=== PATIENT | female | born 1945 | race African-American/Black ===

== ENCOUNTER 2019-02-27 14:26 | Emergency (ER) | payer BC, MEDICARE, OTHER ==
[~2019-02-27] VITALS: Ht 167.6 cm; Wt 69.0 kg
[~2019-02-27 14:26] MED LIST: ASPI-1158; ASPI-986 PO; ATEN-42; ATEN-42 PO; HYDR12.54 PO; HYDROCHLOROTHIAZIDE; ROSU20TA2; ROSU40TA PO
[2019-02-27 15:32] LABS: BASOPHILS % 0.6 % (0.0-2.0); EOSINOPHILS % 1.8 % (0.0-5.0); HEMATOCRIT. 38.4 % (36.0-48.0); HEMOGLOBIN. 12.6 g/dL (12.0-16.0); LYMPHOCYTES % 39.9 % (20.0-50.0); MEAN CORPUSCULAR HEMOGLOBIN 26.9 pg (28.0-32.0); MEAN PLATELET VOLUME 9.6 fl (7.4-10.4); MONOCYTES % 7.9 % (2.0-8.0); NEUTROPHILS % 49.8 % (40.0-76.0); PLATELET 168 x1000/uL (130-400); RED BLOOD CELL COUNT 4.68 mill/uL (4.2-5.4); RED CELL DISTRIBUTION WIDTH 14.2 % (11.6-14.6)
[2019-02-27 15:33] LABS: CHLORIDE 109 mEq/L (98-107)
[2019-02-27 15:37] LABS: D-DIMER 0.38 mg/L FEU (<0.50); INR 1.1; PROTHROMBIN TIME 11.2 sec (9.6-11.0)
[2019-02-27 17:05] VITALS: BP 164/84
== END 2019-02-27 17:07 | disposition home or self-care (01) ==
LOC: ER 14:26
DX: R22.42 Localized swelling, mass and lump, left lower limb (principal); I25.10 Atherosclerotic heart disease of native coronary artery without angina pectoris; I10 Essential (primary) hypertension; Z98.61 Coronary angioplasty status; Z90.49 Acquired absence of other specified parts of digestive tract; Z79.82 Long term (current) use of aspirin; Z79.01 Long term (current) use of anticoagulants
CPT/HCPCS: 36415; 83880; 85379; 93005; 93970; 99284

== ENCOUNTER 2019-08-28 16:10 | Inpatient (IN) | payer BC ==
[~2019-08-28] VITALS: Ht 165.1 cm; Wt 69.2 kg
[2019-08-28] MEDS ORDERED: VISCOUS LIDOCAINE 2% 15 ML UDC PO ONE (21:15)
[2019-08-28] MEDS ORDERED: MAGNESIUM/ALUMINUM HYDROXIDE/SIMETHICONE 30ML UDC PO ONE (21:15)
[2019-08-28] MEDS ORDERED: ASPIRIN 81MG TABLET PO ONE (21:15)
[2019-08-28 21:57] LABS: BASOPHILS % 0.9 % (0.0-2.0); EOSINOPHILS % 2.6 % (0.0-5.0); HEMATOCRIT. 41.3 % (36.0-48.0); HEMOGLOBIN. 13.8 g/dL (12.0-16.0); LYMPHOCYTES % 48.8 % (20.0-50.0); MEAN CORPUSCULAR HEMOGLOBIN 26.9 pg (28.0-32.0); MEAN CORPUSCULAR VOLUME 80.8 fL (81.0-99.0); MEAN PLATELET VOLUME 9.4 fl (7.4-10.4); MONOCYTES % 7.5 % (2.0-8.0); NEUTROPHILS % 40.2 % (40.0-76.0); PLATELET 201 x1000/uL (130-400); RED BLOOD CELL COUNT 5.12 mill/uL (4.2-5.4); RED CELL DISTRIBUTION WIDTH 14.5 % (11.6-14.6)
[2019-08-28 22:06] LABS: CHLORIDE 108 mEq/L (98-107)
[2019-08-28] MEDS ORDERED: MORPHINE SULFATE 4 MG/ML CPJ (NOT FOR IM USE) IV ONE (22:30)
[2019-08-28] MEDS ORDERED: ONDANSETRON HCL 4MG/2ML INJ IV ONE (22:30)
[2019-08-28] MEDS ORDERED: CLONIDINE 0.2MG TABLET PO ONE (22:30)
[2019-08-28] MEDS ORDERED: LABETALOL 5MG/ML SYR 20 MG/4 ML SYRINGE IV ONE (23:30)
[2019-08-29] MEDS ORDERED: DOCUSATE SODIUM 100MG CAPSULE PO PRN (00:30)
[2019-08-29] MEDS ORDERED: MORPHINE SULFATE 2 MG/ML CPJ (NOT FOR IM USE) IV PRN (00:30)
[2019-08-29] MEDS ORDERED: HYDROCODONE/ACETAMINOPHEN 5/325MG TABLET PO PRN (00:30)
[2019-08-29] MEDS ORDERED: ONDANSETRON HCL 4MG/2ML INJ IV PRN (00:30)
[2019-08-29] MEDS ORDERED: CLONIDINE 0.1MG TABLET PO PRN (00:30)
[2019-08-29] MEDS ORDERED: HYDRALAZINE 20MG/ML VIAL IV PRN (00:30)
[2019-08-29] MEDS ORDERED: ACETAMINOPHEN 325MG TABLET PO PRN (00:30)
[2019-08-29 02:52] VITALS: BP 100/65
[2019-08-29 04:00] VITALS: BP 94/65
[2019-08-29 07:58] VITALS: BP 122/60
[2019-08-29 08:00] LABS: CREATINE KINASE 82 IU/L (26-192)
[2019-08-29] MEDS: AMLODIPINE 10MG TABLET PO SCH (08:13)
[2019-08-29] MEDS: LISINOPRIL 20MG TABLET PO SCH (08:14)
[2019-08-29] MEDS: METOPROLOL TARTRATE 25MG TABLET PO SCH ×2 (08:14→21:22)
[2019-08-29] MEDS: ENOXAPARIN 40MG/0.4ML SYR SUBCUT SCH (10:42)
[2019-08-29 11:55] VITALS: BP 100/64
[2019-08-29] MEDS ORDERED: LISI10TA5 PO (13:39)
[2019-08-29] MEDS ORDERED: MELO-106 PO (13:39)
[2019-08-29] MEDS ORDERED: METO25TA6 PO (14:14)
[2019-08-29 16:00] VITALS: BP 90/48
[2019-08-29 19:07] LABS: CREATINE KINASE 74 IU/L (26-192)
[2019-08-29 20:00] VITALS: BP 113/70
[2019-08-30] VITALS: BP 122/73
[2019-08-30 04:00] VITALS: BP 129/71
[2019-08-30 07:13] LABS: BASOPHILS % 0.5 % (0.0-2.0); EOSINOPHILS % 3.6 % (0.0-5.0); HEMATOCRIT. 38.3 % (36.0-48.0); HEMOGLOBIN. 12.6 g/dL (12.0-16.0); LYMPHOCYTES % 53.9 % (20.0-50.0); MEAN CORPUSCULAR HEMOGLOBIN 26.3 pg (28.0-32.0); MEAN CORPUSCULAR VOLUME 80.1 fL (81.0-99.0); MEAN PLATELET VOLUME 9.5 fl (7.4-10.4); MONOCYTES % 9.8 % (2.0-8.0); NEUTROPHILS % 32.2 % (40.0-76.0); PLATELET 176 x1000/uL (130-400); RED BLOOD CELL COUNT 4.78 mill/uL (4.2-5.4); RED CELL DISTRIBUTION WIDTH 14.2 % (11.6-14.6)
[2019-08-30 08:00] VITALS: BP 105/71
[2019-08-30 08:29] LABS: CHLORIDE 109 mEq/L (98-107)
[2019-08-30] MEDS: LISINOPRIL 20MG TABLET PO SCH (08:59)
[2019-08-30] MEDS: METOPROLOL TARTRATE 25MG TABLET PO SCH (09:00)
[2019-08-30] MEDS: ENOXAPARIN 40MG/0.4ML SYR SUBCUT SCH (09:00)
[2019-08-30] MEDS: AMLODIPINE 10MG TABLET PO SCH (09:00)
[2019-08-30 12:00] VITALS: BP 116/72
[2019-08-30 13:07] VITALS: BP 117/72
== END 2019-08-30 14:35 | disposition home or self-care (01) | DRG 392 ==
LOC: ER 16:10 → 5WST 23:48 → EDBEDREQTM 23:49 → EDBEDREQ 23:49 → ENRESERV 08-29 01:38
PROVIDERS: ADMIT Hospitalist; ATTEND Hospitalist
DX: K29.70 Gastritis, unspecified, without bleeding (principal); I16.1 Hypertensive emergency; R07.89 Other chest pain; E78.5 Hyperlipidemia, unspecified; I10 Essential (primary) hypertension; I25.10 Atherosclerotic heart disease of native coronary artery without angina pectoris; Z95.5 Presence of coronary angioplasty implant and graft; Z88.1 Allergy status to other antibiotic agents; Z79.899 Other long term (current) drug therapy; Z90.49 Acquired absence of other specified parts of digestive tract
CPT/HCPCS: 36415; 71045; 74021; 74176; 80053; 82550; 83880; 84484; 85025; 93005; 93970; 96372; 99291; J1650; J3490

== ENCOUNTER 2019-09-25 09:05 | Emergency (ER) | payer BC, MEDICARE ==
[~2019-09-25] VITALS: Ht 170.2 cm; Wt 65.0 kg
[~2019-09-25 09:05] MED LIST changes: -ASPI-986 PO; -ATEN-42; -HYDROCHLOROTHIAZIDE; +LISI10TA5 PO; +MELO-106 PO; +METO25TA6 PO; -ROSU20TA2; -ROSU40TA PO
[2019-09-25 09:21] VITALS: BP 153/94
[2019-09-25] MEDS ORDERED: GUAIFENESIN-DM 200MG-20MG/10ML UDC PO NR (11:45)
[2019-09-25] MEDS ORDERED: IPRATROPIUM/ALBUTEROL 0.5-3(2.5)MG/3ML NEB HHN NR (11:45)
[2019-09-25] MEDS ORDERED: DEXAMETHASONE 4MG TABLET PO NR (12:00)
[2019-09-25] MEDS ORDERED: IPRATROPIUM/ALBUTEROL 0.5-3(2.5)MG/3ML NEB HHN ONE (12:30)
== END 2019-09-25 13:19 | disposition home or self-care (01) ==
LOC: ER 09:05
DX: J20.9 Acute bronchitis, unspecified (principal); I10 Essential (primary) hypertension; Z79.82 Long term (current) use of aspirin; Z88.3 Allergy status to other anti-infective agents
CPT/HCPCS: 71045; 94640; 99283; J8540

== ENCOUNTER 2019-11-05 18:17 | Inpatient (IN) | payer MEDICARE ==
[~2019-11-05] VITALS: Ht 167.6 cm; Wt 67.6 kg
[2019-11-05] MEDS ORDERED: ONDANSETRON HCL 4MG/2ML INJ IV STA (18:47)
[2019-11-05] MEDS ORDERED: MORPHINE SULFATE 4 MG/ML CPJ (NOT FOR IM USE) IV STA (18:47)
[2019-11-05] MEDS ORDERED: NITROGLYCERIN OINT 1GM/INCH UDPKT TD ONE (19:00)
[2019-11-05] MEDS ORDERED: ASPIRIN 81MG TABLET PO ONE (19:00)
[2019-11-05 19:12] LABS: BASOPHILS % 0.9 % (0.0-2.0); EOSINOPHILS % 2.6 % (0.0-5.0); HEMATOCRIT. 41.5 % (36.0-48.0); HEMOGLOBIN. 13.9 g/dL (12.0-16.0); LYMPHOCYTES % 46.5 % (20.0-50.0); MEAN CORPUSCULAR HEMOGLOBIN 27.1 pg (28.0-32.0); MEAN PLATELET VOLUME 9.6 fl (7.4-10.4); MONOCYTES % 6.6 % (2.0-8.0); NEUTROPHILS % 43.4 % (40.0-76.0); PLATELET 205 x1000/uL (130-400); RED BLOOD CELL COUNT 5.12 mill/uL (4.2-5.4); RED CELL DISTRIBUTION WIDTH 14.4 % (11.6-14.6)
[2019-11-05 19:16] LABS: CHLORIDE 107 mEq/L (98-107)
[2019-11-06] VITALS (7 sets, daily range): BP systolic 111–145; BP diastolic 65–106
[2019-11-06] MEDS ORDERED: MORPHINE SULFATE 2 MG/ML CPJ (NOT FOR IM USE) IV PRN (02:30)
[2019-11-06] MEDS ORDERED: NITROGLYCERIN 0.4MG TABLET SL SL PRN (02:30)
[2019-11-06] MEDS: ASPIRIN 325MG TABLET PO SCH (08:52)
[2019-11-06] MEDS: METOPROLOL TARTRATE 50MG TABLET PO SCH ×2 (08:54→21:00)
[2019-11-06 09:36] LABS: BASOPHILS % 0.8 % (0.0-2.0); EOSINOPHILS % 3.4 % (0.0-5.0); HEMOGLOBIN. 13.2 g/dL (12.0-16.0); LYMPHOCYTES % 48.8 % (20.0-50.0); MEAN CORPUSCULAR HEMOGLOBIN 26.7 pg (28.0-32.0); MEAN PLATELET VOLUME 9.6 fl (7.4-10.4); MONOCYTES % 7.8 % (2.0-8.0); NEUTROPHILS % 39.2 % (40.0-76.0); PLATELET 205 x1000/uL (130-400); RED BLOOD CELL COUNT 4.95 mill/uL (4.2-5.4); RED CELL DISTRIBUTION WIDTH 14.3 % (11.6-14.6)
[2019-11-06 09:54] LABS: CHLORIDE 106 mEq/L (98-107)
[2019-11-06 10:02] LABS: LDL CHOLESTEROL 196 mg/dL (5-100)
[2019-11-06 10:03] LABS: HDL CHOLESTEROL 86 mg/dL (40-59)
[2019-11-06] MEDS: LISINOPRIL 10MG TABLET PO SCH (17:11)
[2019-11-06] MEDS ORDERED: REGADENOSON 0.4 MG/5 ML IV ONE (18:15)
[2019-11-06] MEDS ORDERED: ATORVASTATIN CALCIUM 40MG TABLET PO SCH ×2 (21:00)
[2019-11-07] VITALS: BP_SYST 142; BP_SYST 143; BP_DIAS 45; BP_DIAS 86
[2019-11-07 04:00] VITALS: BP 126/59
[2019-11-07 06:00] VITALS: BP 124/60
[2019-11-07 08:00] VITALS: BP 151/82
[2019-11-07] MEDS: METOPROLOL TARTRATE 50MG TABLET PO SCH (08:33)
[2019-11-07] MEDS: LISINOPRIL 10MG TABLET PO SCH (08:33)
[2019-11-07] MEDS: ASPIRIN 325MG TABLET PO SCH (08:33)
[2019-11-07 10:04] LABS: CLARITY URINE CLEAR (CLEAR); COLOR URINE YELLOW (YELLOW); KETONES URINE NEGATIVE (NEGATIVE); LEUKOCYTE ESTERASE URINE TRACE (NEGATIVE); NITRITE URINE NEGATIVE (NEGATIVE); OCCULT BLOOD URINE NEGATIVE (NEGATIVE); PH URINE 6.5 (4.5-8.0); PROTEIN URINE NEGATIVE (NEGATIVE); SPECIFIC GRAVITY URINE 1.009 (1.005-1.030); UROBILINOGEN URINE 0.2 E.U./dL (0.2-1.0)
[2019-11-07 12:00] VITALS: BP 158/91
[2019-11-07] MEDS ORDERED: REGADENOSON 0.4 MG/5 ML IV ONE (12:29)
[2019-11-07] MEDS ORDERED: ATOR80TA MT (14:12)
[2019-11-07 14:43] VITALS: BP 158/91
== END 2019-11-07 17:29 | disposition home or self-care (01) | DRG 305 ==
LOC: ER 18:17 → EDBEDREQ 19:07 → 7WST 19:44 → EDBEDREQ 19:49 → EDBEDREQTM 19:49 → ENRESERV 22:52
PROVIDERS: ADMIT Internal Medicine; ATTEND Internal Medicine
DX: I16.0 Hypertensive urgency (principal); I24.8 Other forms of acute ischemic heart disease; E78.5 Hyperlipidemia, unspecified; I10 Essential (primary) hypertension; I25.10 Atherosclerotic heart disease of native coronary artery without angina pectoris; Z60.2 Problems related to living alone; Z95.1 Presence of aortocoronary bypass graft; Z95.5 Presence of coronary angioplasty implant and graft; Z82.49 Family history of ischemic heart disease and other diseases of the circulatory system; Z79.899 Other long term (current) drug therapy; Z79.82 Long term (current) use of aspirin; Z88.8 Allergy status to other drugs, medicaments and biological substances
CPT/HCPCS: 36415; 71045; 78452; 80048; 80053; 80061; 81003; 83880; 84443; 84484; 85025; 93005; 93017; 93306; 96374; 96375; 99291; A9500; J2270; J2405; J2785

== ENCOUNTER 2022-10-02 14:47 | Emergency (ER) | payer MEDICARE ==
[~2022-10-02] VITALS: Ht 167.6 cm; Wt 69.0 kg
[~2022-10-02 14:47] MED LIST changes: -ASPI-1158; +ASPI-1406; +ATOR80TA MT; +LISI10TA26 PO; -LISI10TA5 PO; -METO25TA6 PO
[2022-10-02] MEDS ORDERED: KETOROLAC 60MG/2ML VIAL IM ONE (16:00)
[2022-10-02 16:14] VITALS: BP 162/93
[2022-10-02 16:19] LABS: BASOPHILS % 0.9 % (0.0-2.0); EOSINOPHILS % 2.6 % (0.0-5.0); HEMATOCRIT. 38.6 % (36.0-48.0); HEMOGLOBIN. 12.7 g/dL (12.0-16.0); LYMPHOCYTES % 36.1 % (20.0-50.0); MEAN CORPUSCULAR HEMOGLOBIN 26.4 pg (28.0-32.0); MEAN CORPUSCULAR VOLUME 79.9 fL (81.0-99.0); MEAN PLATELET VOLUME 9.2 fl (7.4-10.4); MONOCYTES % 6.6 % (2.0-8.0); NEUTROPHILS % 53.8 % (40.0-76.0); PLATELET 199 x1000/uL (130-400); RED BLOOD CELL COUNT 4.83 mill/uL (4.2-5.4); RED CELL DISTRIBUTION WIDTH 14.7 % (11.6-14.6)
[2022-10-02 16:29] LABS: CHLORIDE 106 mEq/L (98-107)
[2022-10-02 16:30] LABS: CLARITY URINE CLEAR (CLEAR); COLOR URINE YELLOW (YELLOW); KETONES URINE NEGATIVE (NEGATIVE); LEUKOCYTE ESTERASE URINE 3+ (NEGATIVE); NITRITE URINE NEGATIVE (NEGATIVE); OCCULT BLOOD URINE NEGATIVE (NEGATIVE); PROTEIN URINE NEGATIVE (NEGATIVE); SPECIFIC GRAVITY URINE 1.006 (1.005-1.030); UROBILINOGEN URINE 0.2 E.U./dL (0.2-1.0)
[2022-10-02] MEDS ORDERED: IBUP-2028 MT (18:05)
[2022-10-02] MEDS ORDERED: CEPH500C2 MT (18:05)
== END 2022-10-02 18:25 | disposition home or self-care (01) ==
LOC: ER 14:47
DX: M54.2 Cervicalgia (principal); R51.9 Headache, unspecified; R10.31 Right lower quadrant pain; I10 Essential (primary) hypertension; Z88.1 Allergy status to other antibiotic agents; Z79.899 Other long term (current) drug therapy; Z79.82 Long term (current) use of aspirin
CPT/HCPCS: 36415; 74176; 80053; 81003; 83690; 85025; 96372; 99285; J1885

== ENCOUNTER 2023-09-16 15:50 | Emergency (ER) | payer MEDICARE ==
[~2023-09-16] VITALS: Ht 165.1 cm; Wt 65.0 kg
[~2023-09-16 15:50] MED LIST changes: +CEPH500C2 MT; +IBUP-2028 MT
[2023-09-16 15:56] VITALS: TEMP 97.7; O2SAT 98
[2023-09-16 20:13] VITALS: BP 101/44; PULSE 72; RESP 16
[2023-09-16] MEDS: KETOROLAC 15MG/ML VIAL IV ONE (20:13)
[2023-09-16] MEDS: SODIUM CHLORIDE 0.9% 1,000 ML IV ONE (20:13)
[2023-09-16] MEDS: METOCLOPRAMIDE HCL 10MG/2ML VIAL IV ONE (20:13)
[2023-09-16 20:59] LABS: CLARITY URINE CLOUDY (CLEAR); COLOR URINE YELLOW (YELLOW); GLUCOSE URINE NEGATIVE (NEGATIVE); KETONES URINE 1+ (NEGATIVE); LEUKOCYTE ESTERASE URINE TRACE (NEGATIVE); NITRITE URINE NEGATIVE (NEGATIVE); OCCULT BLOOD URINE NEGATIVE (NEGATIVE); PH URINE >=9.0 (4.5-8.0); PROTEIN URINE NEGATIVE (NEGATIVE); SPECIFIC GRAVITY URINE 1.015 (1.005-1.030); UROBILINOGEN URINE 0.2 E.U./dL (0.2-1.0)
[2023-09-16 21:11] LABS: BACTERIA URINE 1+; RBC URINE NONE SEEN /hpf (0-2); SQUAMOUS EPITHELIAL CELL URINE FEW /lpf (RARE/1+); WBC URINE 0-2 /hpf (0-2)
[2023-09-16 21:52] LABS: HEMATOCRIT. 39.2 % (36.0-48.0); HEMOGLOBIN. 12.8 g/dL (12.0-16.0); MEAN CORPUSCULAR HEMOGLOBIN 26.6 pg (28.0-32.0); MEAN CORPUSCULAR HGB CONC 32.8 g/dL (31.0-37.0); MEAN CORPUSCULAR VOLUME 81.2 fL (81.0-99.0); MEAN PLATELET VOLUME 9.9 fl (7.4-10.4); PLATELET 194 x1000/uL (130-400); RED BLOOD CELL COUNT 4.82 mill/uL (4.2-5.4); RED CELL DISTRIBUTION WIDTH 14.4 % (11.6-14.6)
[2023-09-16 21:53] LABS: DIFFERENTIAL COMMENT 1
[2023-09-16 22:12] LABS: ALANINE AMINOTRANSFERASE 28 IU/L (10-49); ALBUMIN 4.6 g/dL (3.2-4.8); ASPARTATE AMINOTRANSFERASE 29 IU/L (<34); BILIRUBIN TOTAL 1.3 mg/dL (0.1-1.0); CALCIUM 9.7 mg/dL (8.7-10.4); CARBON DIOXIDE 26 mEq/L (21-32); CHLORIDE 103 mEq/L (98-107); CREATININE 0.7 mg/dL (0.6-1.0); GLUCOSE 129 mg/dL (70-105); POTASSIUM 3.2 mEq/L (3.5-5.1); PROTEIN TOTAL 7.2 g/dL (6.0-8.3); SODIUM 138 mEq/L (136-145); UREA NITROGEN BLOOD 12 mg/dL (9-23)
[2023-09-16 22:13] LABS: PLATELET ESTIMATE NORMAL
[2023-09-16 22:14] LABS: TROPONIN I HIGH SENSITIVITY < 4 ng/L (3.0-34)
[2023-09-16] MEDS ORDERED: POTASSIUM CHLORIDE 20MEQ/PACKET PO ONE (23:30)
== END 2023-09-17 00:58 | disposition home or self-care (01) ==
LOC: ER 15:50
DX: R11.2 Nausea with vomiting, unspecified (principal); R51.9 Headache, unspecified; R10.9 Unspecified abdominal pain; I10 Essential (primary) hypertension; Z90.710 Acquired absence of both cervix and uterus; Z79.899 Other long term (current) drug therapy
CPT/HCPCS: 99285; 70450; 96374; 71045; 96361; 96375; 80053; 81003; 83880; 83690; 85025; 84484; 36415; 74176; J1885; J2765; J7030; C1893